=== PATIENT | male | born 1960 | race Two or more races ===

== ENCOUNTER → 2018-04-15 | Day surgery (SDC) | payer OTHER | END | disposition home or self-care (01) | LOC: ADM 04-07 12:15 → AMB-ENDOS 05:45 → CIR.AMB 12:15 → AMB-ENDOS 12:15 → EDBD 12:15 | DX: D12.0 Benign neoplasm of cecum (principal); D12.5 Benign neoplasm of sigmoid colon; K64.1 Second degree hemorrhoids ==

== ENCOUNTER 2019-07-07 09:35 | Day surgery (SDC) | payer OTHER | END 2019-07-07 17:40 | disposition home or self-care (01) | LOC: AMB-ENDOS 09:35 | DX: K64.0 First degree hemorrhoids (principal) ==